=== PATIENT | female | born 1955 | race Caucasian/White ===

== ENCOUNTER 2024-04-12 14:25 | Outpatient (CLI) | payer OTHER, SELFPAY ==
--- NOTE | ~2024-04-12 | MM_ITS ---
EXAMINATION: MM screening nikhil BI w yara HISTORY: Screening TECHNIQUE: Craniocaudal and mediolateral oblique 3-D tomosynthesis images were obtained and synthetic 2-D images were generated. CAD analysis was submitted and interpreted. COMPARISON: Comparison to multiple prior studies sequentially, with oldest reviewed study dated 12/15. BREAST PARENCHYMAL COMPOSITION: Not Dense: The breasts are almost entirely fatty. FINDINGS: There is no evidence of suspicious mass, calcification, or architectural distortion to sugg est malignancy in either breast. There has been no suspicious interval change. IMPRESSION: 1. No mammographic evidence of malignancy. 2. Recommend routine screening mammography in one year. BI-RADS Category 1: Negative Reviewed, dictated and finalized at location A. L OPERATIONS MANAGER
== END 2024-04-12 14:26 | disposition home or self-care (01) ==
LOC: MICIMG 14:26
PROVIDERS: PCP Internal Medicine; Visit Provider Internal Medicine
DX: Z12.31 Encounter for screening mammogram for malignant neoplasm of breast (principal)
CPT/HCPCS: 77063; 77067

== ENCOUNTER 2024-08-29 20:56 | Emergency (ER) | payer OTHER, SELFPAY ==
--- NOTE | ~2024-08-29 | CT_ITS ---
Non-contrast Head CT History: Head injury Technique: Axial non-contrast imaging of the brain was performed. Dose reduction technique was used on this scan by utilizing automated exposure control and iterative reconstruction technique. The dose -length product (DLP) was 681.00 mGy-cm. Findings: There is no evidence of intracranial hemorrhage, mass lesion, or acute infarct. Brain par enchyma appears normal. The ventricles and subarachnoid spaces are normal in size. The calvarium ap pears normal. The visualized paranasal sinuses and mastoid air cells are clear. Impression: No significant abnormality seen. Reviewed, dictated and finalized at location . Impression: No significant abnormality seen.
--- NOTE | ~2024-08-29 | XR_ITS ---
HISTORY: fall, pain COMPARISON: None TECHNIQUE: 3 views of the right shoulder were performed FINDINGS: Acute comminuted fracture of the right humeral neck is identified. Limited visualization of the glenoid fossa. Impaction and overlap of the fracture fragments are present. 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 IMPRESSION: Acute comminuted fracture of the right humeral neck with impaction and overlap of the fracture fragme nts Reviewed, dictated and finalized at location A. IMPRESSION: Acute comminuted fracture of the right humeral neck with impaction and overlap of the fracture fragments
[2024-08-29 20:58] VITALS: BP 154/92; PULSE 80; RESP 18; TEMP 36.7; O2SAT 98
--- OUTSIDE RECORDS SUMMARY | 2024-08-29 20:59 | XMS_ITS | Clinical Summary ---
Author Organization [facility] Address [address] [address] Care Team Providers Care Building Manager Name Role Phone Unavailable Primary Care Provider Unavailabl e Source Comments [facility],non-owned Affiliates and Associated Physician Practices is amultiple site organization consisting of ambulatory clinics and hospital sitesin [place], [place], [place] and [place]. This disclosure is being madepursuant to the Care Everywhere program and may not contain all information available regarding this patient. Last updated 17.[facility] OneTouch Allergies No known active allergies Medications * Be aware that medications may not be up to date on this document. Alwaysverify current medications with the patient. albuterol HFA (Proventil; Ventolin; Proair) 108 (90 Base) MCG/ACT inhaler Inhale 2 (two) puffs by mouth every 6 hours as needed Active ALPRAZolam (Xanax) 0.5 MG tablet 05/07/2022 Active buPROPion XL 24hr (Wellbutrin-XL) 300 MG tablet Take 1 (one) tablet by mouth once daily 03/31/2022 Active doxepin (SINEquan) 10 MG capsule Take 1 (one) capsule by mouth at bedtime 11/12/2021 Active famotidine (Pepcid) 40 MG tablet Take 1 (one) tablet by mouth once daily 03/13/2022 Active hydroCHLOROthia zide (Hydrodiuril) 25 MG tablet Take 1 (one) tablet by mouth once daily 03/25/2022 Active potassium chloride ER (Klor-Con M) 10 MEQ tablet Take 1 (one) tablet by mouth 2 times daily 01/18/2022 Active Active Problems Problem Noted Date Diagnosed Date Screening for condition 05/27/2022 Overview (05/27/2022): 05/20/2022: PAP NILM, HPV neg --> 2025 Immunizations Immunization Administration Dates Next Due COVID PFIZER BIVALENT 12Y+ 30mcg/0.3ML 2 Covid Pfizer primary monoval ent 12+ yr 0.3mL Purple cap 03/21/2021 INFLUENZA VACCINE 12/15/2020,12/15/2018,12/29/19 18 INFLUENZA VACCINE, QUADR. (F LUZONE; FLULAVAL; FLUARIX; AFLURIA QUADRIVALENT; 6MO+), 0.5 ML (IIV4) 12/25/2021 PNEUMOCOCCAL PPSV23 05/10/2019 TDAP (7yrs+) 05/10/2019 Social History Tobacco Use Types Packs/Day Years Used Date Smoking Tobacco: Never Smokeless Tobacco: Never Alcohol Use Standard Drinks/Week Comments Never 0 (1 standard drink = 0.6 oz pur e alcohol) Comments No Sex and Gender Information Value Date Recorded Sex Assigned at Not on file Legal Sex Female 6:31 AM COLUMNIST Gender Identity Not on file Sexual Orientation Not on file Last Filed Vital Signs Vital Sign Reading Time Taken Comments Blood Pressure 130/72 05/20/2022 10:27 AM COLUMNIST Pulse - - Temperature - - Respiratory Rate - - Oxygen Saturation - - Inhaled Oxygen Concentration - - Weight 98.4 kg (217 lb) 05/20/2022 10:27 AM COLUMNIST Height 157.5 cm (5' 2) 05/20/2022 10:27 AM COLUMNIST Body Mass Index 39.69 05/20/2022 10:27 AM COLUMNIST Plan of Treatment Health Maintenance Due Date Last Done Comments BONE DENSITY TESTING 1955 COLOGUARD (AGES 45-75) - COLON CA SCREENING 1955 COLON MONITORING 1955 COLONOSCOPY - COLON CA SCREENING 1955 CT COLONOGRAPHY - COLON CA SCREENING 1955 Colorectal Cancer Screening 1955 FIT - COLON CA SCREENING 1955 FLEX SIG - COLON CA SCREENING 1955 LIPID TESTING 1955 MAMMOGRAM 1955 ZOSTER VACCINE (1 of 2) 2007 PNEUMOCOCCAL VACCINE 50+ (2 of 2 - PCV) 05/10/2020 05/10/2019 COVID-19 VACCINE (5 season) 2023 12/25/2021, 03/21/2021, 03/20/2020, Additional history exists DEPRESSION SCREENING 03/17/2024 INFLUENZA VACCINE (Season Ended) 2024 12/25/2021, 12/15/2020, 12/15/2018, Additional history exists SCREENING FOR DIABETES 09/11/2025 , 09/11/2022, 09/11/2022 DTAP/TDAP/TD VACCINES (2 - Td or Tdap) 05/10/2029 05/10/2019 Respiratory Syncytial Virus (RSV) Vaccine Pt: or over 60 yrs (1 - 1-dose 75+ series) 01/30/2032 HEPATITIS C SCREENING Completed 09/11/2022 HEPATITIS B VACCINE Aged Out No longe r eligible based on patient's age to complete this topic HIB VACCINE Aged Out No longer eligi ble based on patient's age to complete this topic HPV VACCINE Aged Out No longer eligi ble based on patient's age to complete this topic MENINGOCOCCAL (Group B) VACCINE SHARED DECISION-MAKING Aged Out No longer eligible based on patient's age to complete this topic MENINGOCOCCAL GROUPS A/C/Y/W VACCINE Aged Out No longer eligible based on patient's age to complete this topic Insurance [facility]
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
--- OUTSIDE RECORDS SUMMARY | 2024-08-29 22:11 | XMS_ITS | Encounter Summary ---
Author Organization [facility] Address [address] [place] [address] Care Team Providers Care Cad Application Support Specialist Name Role Phone Shimon Elliott MD Primary Care Provider Encounter Details Date Type Department Care Team (Late Contact Info) Description 09/11/2022 Berry Whitet Message Enc [facility] Medical [facility] [address] [place], [place] [phone] Curiously, [facility] Provider Air Quality Message Social History Tobacco Use Types Packs/Day Years Used Date Smoking Tobacco: Never Smokeless Tobacco: Never Alcohol Use Standard Drinks/Week Comments Never 0 (1 standard drink = 0.6 oz pur e alcohol) AUDIT-C Answer Date Recorded Frequency of Alcohol Consumption Never 04/30/2018 Average Number of Drinks Not on file 019 Frequency of Binge Drinking Not on file 04/17 PHQ-2 Answer Date Recorded PHQ-2 Score - If the patient scores above 3, please move on to questions 3-9 2 01/28/2022 Comments No Sex and Gender Information Value Date Recorded Sex Assigned at Female 04/30/2018 8:41 AM KEEPER HELPER Legal Sex Female 9:23 PM CDT Gender Identity Female 04/30/2018 8:41 AM KEEPER HELPER Sexual Orientation Straight 04/30/2018 8: 41 AM KEEPER HELPER documented as of this encounter Plan of Treatment Upcoming Encounters Date Type Department Care Team (Late Contact Info) Description 10/11/2024 8:20 AM CDT Office Visit [facility] Medical Group Family & Internal Medicine [address] [address] Shimon Elliott MD [address] [place] [address] documented as of this encounter Visit Diagnoses Not on filedocumented in this encounter Additional Health Concerns Assessment Noted Time PHQ-9 Depression Total Score: 5 12/26/19 22 9:01 AM CDT documented as of this encounter Care Teams Cad Application Support Specialist Relationship Specialty Start Date End Date Shimon Elliott MD [address] [place] [address] PCP - General INTERNAL MEDICINE 04/30/18 documented as of this encounter
--- OUTSIDE RECORDS SUMMARY | 2024-08-29 22:11 | XMS_ITS | Encounter Summary ---
Author Organization [facility] Address [address] [place] [address] Care Team Providers Care Scoring Machine Operator Name Role Phone Shimon Elliott MD Primary Care Provider Encounter Details Date Type Department Care Team (Late st Contact Info) Description 12/05/2020 Teleborderhart Message Enc [facility] Medical Group Family & Internal Medicine [address] [address] Shimon Elliott MD [address] [place] [phone] Other Social History Tobacco Use Types Packs/Day Years Used Date Smoking Tobacco: Never Smokeless Tobacco: Never Alcohol Use Standard Drinks/Week Comments No 0 (1 standard drink = 0.6 oz pur e alcohol) AUDIT-C Answer Date Recorded Frequency of Alcohol Consumption Never 04/30/2018 Average Number of Drinks Not on file 019 Frequency of Binge Drinking Not on file 04/17 PHQ-2 Answer Date Recorded PHQ-2 Score - If the patient scores above 3, please move on to questions 3-9 1 07/24/2020 Comments No Sex and Gender Information Value Date Recorded Sex Assigned at Female 04/30/2018 8:41 AM BARMAID Legal Sex Female 9:23 PM CDT Gender Identity Female 04/30/2018 8:41 AM BARMAID Sexual Orientation Straight 04/30/2018 8: 41 AM BARMAID documented as of this encounter Plan of Treatment Upcoming Encounters Date Type Department Care Team (Late st Contact Info) Description 10/11/2024 8:20 AM CDT Office Visit [facility] - [place] [facility] [address] [place] [address] Shimon Elliott MD [address] [place] [address] documented as of this encounter Visit Diagnoses Not on filedocumented in this encounter Additional Health Concerns Infection Onset Date Last Indicated Resolved Time COVID-19 Rule Out 01/28/2022 01/28/2022 01/28/2022 2:30 PM BARMAID COVID-19 Rule Out 01/28/2022 01/28/2022 2022 2:55 PM BARMAID Assessment Noted Time PHQ-9 Depression Total Score: 2 07/25/19 21 12:22 PM CDT documented as of this encounter Care Teams Scoring Machine Operator Relationship Specialty Start Date End Date Shimon Elliott MD [facility] [place] [address] PCP - General INTERNAL MEDICINE 04/30/18 documented as of this encounter
--- OUTSIDE RECORDS SUMMARY | 2024-08-29 22:11 | XMS_ITS | Encounter Summary ---
Author Organization [facility] Address [facility] [place] [address] Care Team Providers Care Retirement Sales Consultant Name Role Phone Shimon Elliott MD Primary Care Provider [phone] Encounter Details Date Type Department Care Team (Late st Contact Info) Description 01/14/2021 PayProphart Message Enc [facility] Medical Group Family & Internal Medicine [place] [id number] [place] [address] Shimon Elliott MD [facility] [place], [place] [phone] Follow Up/Update Social History Tobacco Use Types Packs/Day Years [...] Sex Assigned at Female 04/30/2018 8:41 AM BUTCHER MEAT Legal Sex Female 9:23 PM CDT Gender Identity Female 04/30/2018 8:41 AM BUTCHER MEAT Sexual Orientation Straight 04/30/2018 8: 41 AM BUTCHER MEAT COVID-19 Exposure Response Date Recorded In the last month, have you been in contact with someone who was confirmed or suspected to have Coronavirus / COVID-19? Unable to assess 01/17/2021 6:37 AM CDT documented as of this encounter Progress Notes * Shimon Elliott MD - 01/15/2021 1:41 PM CDT Not sure what she is asking, please clarify documented in this encounter Plan of Treatment Upcoming Encounters Date Type Department Care Team (Late st Contact Info) Description 10/11/2024 8:20 AM CDT Office Visit [facility] Medical Group Family & Internal Medicine - [place] [address] [place] [address] Shimon Elliott MD [address] [place] [address] documented as of this encounter Visit Diagnoses Not on filedocumented in this encounter Additional Health Concerns Infection Onset Date Last Indicated Resolved Time COVID-19 Rule Out 01/28/2022 01/28/2022 01/28/2022 2:30 PM BUTCHER MEAT COVID-19 Rule Out 01/28/2022 01/28/2022 2022 2:55 PM BUTCHER MEAT Assessment Noted Time PHQ-9 Depression Total Score: 2 07/25/19 21 12:22 PM CDT documented as of this encounter Care Teams Retirement Sales Consultant Relationship Specialty Start Date End Date Shimon Elliott MD [facility] [place] [address] PCP - General INTERNAL MEDICINE 04/30/18 documented as of this encounter
--- OUTSIDE RECORDS SUMMARY | 2024-08-29 22:11 | XMS_ITS | Encounter Summary ---
Author Organization [facility] Address [address] [place] [address] Care Team Providers Care Care Services Manager Name Role Phone Shimon Elliott MD Primary Care Provider [phone] Encounter Details Date Type Department Care Team (Late st Contact Info) Description 12/15/2019 MyChart Message Enc [facility] Family & Internal [address] [address] Shimon Elliott MD [address] [place] [address] [phone] RE: Question Social History Tobacco Use Types Packs/Day Years Used Date Smoking Tobacco: Never Smokeless Tobacco: Never Alcohol Use Standard Drinks/Week Comments No 0 (1 standard drink = 0.6 oz pur e alcohol) AUDIT-C Answer Date Recorded Frequency of Alcohol Consumption Never 04/30/2018 Average Number of Drinks Not on file 019 Frequency of Binge Drinking Not on file 04/17 PHQ-2 Answer Date Recorded PHQ-2 Score 0 05/10/2019 Comments No Sex and Gender Information Value Date Recorded Sex Assigned at Female 04/30/2018 8:41 AM SURGICAL CODER Legal Sex Female 9:23 PM CDT Gender Identity Female 04/30/2018 8:41 AM SURGICAL CODER Sexual Orientation Straight 04/30/2018 8: 41 AM SURGICAL CODER documented as of this encounter Plan of Treatment Upcoming Encounters Date Type Department Care Team (Late st Contact Info) Description 10/11/2024 8:20 AM CDT Office Visit [facility] Family & Internal [address] [address] Shimon Elliott MD [address] [place] [address] documented as of this encounter Visit Diagnoses Not on filedocumented in this encounter Additional Health Concerns Infection Onset Date Last Indicated Resolved Time COVID-19 Rule Out 01/28/2022 01/28/2022 01/28/2022 2:30 PM SURGICAL CODER COVID-19 Rule Out 01/28/2022 01/28/2022 2022 2:55 PM SURGICAL CODER documented as of this encounter Care Teams Care Services Manager Relationship Specialty Start Date End Date Shimon Elliott MD [address] [place] [address] PCP - General INTERNAL MEDICINE 04/30/18 documented as of this encounter
--- OUTSIDE RECORDS SUMMARY | 2024-08-29 22:11 | XMS_ITS | Clinical Summary ---
Author Organization [facility] Address [address] [place] [address] Care Team Providers Care Refuse Collector Supervisor Name Role Phone Unavailable Primary Care Provider Unavailabl e Source Comments [facility],non-owned Affiliates and Associated Physician Practices is amultiple site organization consisting of ambulatory clinics and hospital sitesin [place], [place], [place] and [place]. This disclosure is being madepursuant to the Care Everywhere program and may not contain all information available regarding this patient. Last updated 17.[facility] [employer] Allergies No known active allergies Medications * [...] on file Legal Sex Female 6:31 AM DIVISION SERVICE MANAGER Gender Identity Not on file Sexual Orientation Not on file Last Filed Vital Signs Vital Sign Reading Time Taken Comments Blood Pressure 130/72 05/20/2022 10:27 AM DIVISION SERVICE MANAGER Pulse - - Temperature - - Respiratory Rate - - Oxygen Saturation - - Inhaled Oxygen Concentration - - Weight 98.4 kg (217 lb) 05/20/2022 10:27 AM DIVISION SERVICE MANAGER Height 157.5 cm (5' 2) 05/20/2022 10:27 AM DIVISION SERVICE MANAGER Body Mass Index 39.69 05/20/2022 10:27 AM DIVISION SERVICE MANAGER Plan of Treatment Health Maintenance Due Date [...] patient's age to complete this topic Insurance [facility]
--- OUTSIDE RECORDS SUMMARY | 2024-08-29 22:11 | XMS_ITS | Encounter Summary ---
Author Organization [facility] Address [address] [place] [address] Care Team Providers Care Apron Cleaner Name Role Phone Shimon Elliott MD Primary Care Provider [phone] Encounter Details Date Type Department Care Team (Late st Contact Info) Description 12/27/2021 Raffstarhart Message Enc [facility] Medical Group Family & Internal Medicine [facility] [address] [place] [address] Shimon Elliott MD [facility]1 [place], [place] [id number] Health screening Social History Tobacco Use Types Packs/Day Years [...] 3, please move on to questions 3-9 0 12/25/2021 Comments No Sex and Gender Information Value Date Recorded Sex Assigned at Female 04/30/2018 8:41 AM CROWD CONTROLLER Legal Sex Female 9:23 PM CDT Gender Identity Female 04/30/2018 8:41 AM CROWD CONTROLLER Sexual Orientation Straight 04/30/2018 8: 41 AM CROWD CONTROLLER COVID-19 Exposure Response Date Recorded In the last 10 days, have yo u been in contact with someone who was confirmed or suspected to have Coronavirus/COVID-19? No / Unsure 12/25/2021 8:26 AM CDT documented as of this encounter Progress Notes * Shaneka Morris MA - 12/27/2021 9:32 AM CDT Form printed for signature * Shaneka Morris MA - 12/27/2021 9:32 AM CDTFrom: Ebonie Jaramillo To: Dr. Shimon Elliott Sent: 12/27/2021 9:17 AM CDT Subject: Health screening I have a form from work for health screening that needs completed. It can be emailed back to me at work Jaron [email or web address] [email or web address]. I appreciate it. Ebonie documented in this encounter Plan of Treatment Upcoming Encounters Date Type Department Care Team (Late st Contact Info) Description 10/11/2024 8:20 AM CDT Office Visit [facility] Family & Internal Medicine [place] [address] [place] [address] Shimon Elliott MD [address] [place] [address] documented as of this encounter Visit Diagnoses Not on filedocumented in this encounter Additional Health Concerns Infection Onset Date Last Indicated Resolved Time COVID-19 Rule Out 01/28/2022 01/28/2022 01/28/2022 2:30 PM CROWD CONTROLLER COVID-19 Rule Out 01/28/2022 01/28/2022 2022 2:55 PM CROWD CONTROLLER Assessment Noted Time PHQ-9 Depression Total Score: 5 12/26/19 22 9:01 AM CDT documented as of this encounter Care Teams Apron Cleaner Relationship Specialty Start Date End Date Shimon Elliott MD [facility] [place] [address] PCP - General INTERNAL MEDICINE 04/30/18 documented as of this encounter
--- OUTSIDE RECORDS SUMMARY | 2024-08-29 22:11 | XMS_ITS | Encounter Summary ---
Author Organization [facility] Address [address] [place] [address] Care Team Providers Care Strength And Conditioning Coach Name Role Phone Shimon Elliott MD Primary Care Provider [phone] Encounter Details Date Type Department Care Team (Late Contact Info) Description 05/09/2018 Cloudanthart Message Enc [facility] Family & Internal [facility] [address] [place] [address] Shimon Elliott MD [address] [place], [place] [phone] Other Social History Tobacco Use Types Packs/Day Years Used Date Smoking Tobacco: Never Smokeless Tobacco: Never Alcohol Use Standard Drinks/Week Comments No 0 (1 standard drink = 0.6 oz pur e alcohol) AUDIT-C Answer Date Recorded Frequency of Alcohol Consumption Never 04/30/2018 Average Number of Drinks Not on file 019 Frequency of Binge Drinking Not on file 04/17 Comments No Sex and Gender Information Value Date Recorded Sex Assigned at Female 04/30/2018 8:41 AM MEDICAL LAB TECH INSTRUCTOR Legal Sex Female 9:23 PM CDT Gender Identity Female 04/30/2018 8:41 AM MEDICAL LAB TECH INSTRUCTOR Sexual Orientation Straight 04/30/2018 8: 41 AM MEDICAL LAB TECH INSTRUCTOR documented as of this encounter Plan of Treatment Upcoming Encounters Date Type Department Care Team (Late Contact Info) Description 10/11/2024 8:20 AM CDT Office Visit [facility] Family & Internal Medicine [facility] [address] [place] [address] Shimon Elliott MD [address] [place] [address] documented as of this encounter Visit Diagnoses Not on filedocumented in this encounter Additional Health Concerns Infection Onset Date Last Indicated Resolved Time COVID-19 Rule Out 01/28/2022 01/28/2022 01/28/2022 2:30 PM MEDICAL LAB TECH INSTRUCTOR COVID-19 Rule Out 01/28/2022 01/28/2022 2022 2:55 PM MEDICAL LAB TECH INSTRUCTOR documented as of this encounter Care Teams Strength And Conditioning Coach Relationship Specialty Start Date End Date Shimon Elliott MD [address] [place] [address] PCP - General INTERNAL MEDICINE 04/30/18 documented as of this encounter
--- OUTSIDE RECORDS SUMMARY | 2024-08-29 22:11 | XMS_ITS | Encounter Summary ---
Author Organization [facility] Address [address] [place] [address] Care Team Providers Care Sensor Specialist Name Role Phone Shimon Elliott MD Primary Care Provider [phone] Encounter Details Date Type Department Care Team (Late st Contact Info) Description 12/27/2021 Workpophart Message Enc [facility] Medical Group Family & Internal Medicine [facility] [address] [place] [address] Shimon Elliott MD [facility]1 [place], [place] [phone] Health screening Social History Tobacco Use Types [...] Sex Assigned at Female 04/30/2018 8:41 AM VULCAN CREWMEMBER Legal Sex Female 9:23 PM CDT Gender Identity Female 04/30/2018 8:41 AM VULCAN CREWMEMBER Sexual Orientation Straight 04/30/2018 8: 41 AM VULCAN CREWMEMBER COVID-19 Exposure Response Date Recorded In the last 10 days, have yo u been in contact with someone who was confirmed or suspected to have Coronavirus/COVID-19? No / Unsure 12/25/2021 8:26 AM CDT documented as of this encounter Plan of Treatment Upcoming Encounters Date Type Department Care Team (Late st Contact Info) Description 10/11/2024 8:20 AM CDT Office Visit [facility] Medical Group Family & Internal Medicine [facility] [address] [place] [address] Shimon Elliott MD [address] [place] [address] documented as of this encounter Visit Diagnoses Not on filedocumented in this encounter Additional Health Concerns Infection Onset Date Last Indicated Resolved Time COVID-19 Rule Out 01/28/2022 01/28/2022 01/28/2022 2:30 PM VULCAN CREWMEMBER COVID-19 Rule Out 01/28/2022 01/28/2022 2022 2:55 PM VULCAN CREWMEMBER Assessment Noted Time PHQ-9 Depression Total Score: 5 12/26/19 22 9:01 AM CDT documented as of this encounter Care Teams Sensor Specialist Relationship Specialty Start Date End Date Shimon Elliott MD [address] [place] [address] PCP - General INTERNAL MEDICINE 04/30/18 documented as of this encounter
--- OUTSIDE RECORDS SUMMARY | 2024-08-29 22:11 | XMS_ITS | Encounter Summary ---
Author Organization [facility] Address [facility] [place] [address] Care Team Providers Care Conference Center Coordinator Name Role Phone Shimon Elliott MD Primary Care Provider [phone] Encounter Details Date Type Department Care Team (Late st Contact Info) Description 09/30/2018 CFO.comt Message Enc [facility] Medical Group Family & Internal Medicine [facility] [address] [place] [address] Shimon Elliott MD [address] [place], [place] [phone] RE: Other Social History Tobacco Use Types Packs/Day [...] 04/17 PHQ-2 Answer Date Recorded PHQ-2 Score 2 06/15/2018 Comments No Sex and Gender Information Value Date Recorded Sex Assigned at Female 04/30/2018 8:41 AM INDUSTRIAL SERVICE TECHNICIAN Legal Sex Female 9:23 PM CDT Gender Identity Female 04/30/2018 8:41 AM INDUSTRIAL SERVICE TECHNICIAN Sexual Orientation Straight 04/30/2018 8: 41 AM INDUSTRIAL SERVICE TECHNICIAN documented as of this encounter Progress Notes * Shimon Elliott MD - 10/08/2018 10:33 PM CDT CBC, CMP, Lipids, TSH with reflex, UA documented in this encounter Plan of Treatment Upcoming Encounters Date Type Department Care Team (Late st Contact Info) Description 10/11/2024 8:20 AM CDT Office Visit [facility] Group Family & Internal Medicine - [place] [address] [place] [address] Shimon Elliott MD [address] [place] [address] documented as of this encounter Visit Diagnoses Not on filedocumented in this encounter Additional Health Concerns Infection Onset Date Last Indicated Resolved Time COVID-19 Rule Out 01/28/2022 01/28/2022 01/28/2022 2:30 PM INDUSTRIAL SERVICE TECHNICIAN COVID-19 Rule Out 01/28/2022 01/28/2022 2022 2:55 PM INDUSTRIAL SERVICE TECHNICIAN documented as of this encounter Care Teams Conference Center Coordinator Relationship Specialty Start Date End Date Shimon Elliott MD [address] [place] [address] PCP - General INTERNAL MEDICINE 04/30/18 documented as of this encounter
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
--- OUTSIDE RECORDS SUMMARY | 2024-08-29 22:11 | XMS_ITS | Encounter Summary ---
Author Organization [facility] Address [facility] [place] [address] Care Team Providers Care Scholastic Aptitude Test Grader Name Role Phone Shimon Elliott MD Primary Care Provider [phone] Encounter Details Date Type Department Care Team (Late st Contact Info) Description 06/01/2018 Aeropostt Message Enc [facility] Medical Group Family & Internal Medicine [facility] [address] [place] [address] Shimon Elliott MD [facility] [place], [place] [phone] Medication Questions Social History Tobacco Use Types Packs/Day Years [...] Sex Assigned at Female 04/30/2018 8:41 AM SOLAR SALES ESTIMATOR Legal Sex Female 9:23 PM CDT Gender Identity Female 04/30/2018 8:41 AM SOLAR SALES ESTIMATOR Sexual Orientation Straight 04/30/2018 8: 41 AM SOLAR SALES ESTIMATOR documented as of this encounter Progress Notes * Shimon Elliott MD - 06/01/2018 2:17 PM CDT She really needs to make an appointment to discuss this and discuss medications that are available. documented in this encounter Plan of Treatment Upcoming Encounters Date Type Department Care Team (Late st Contact Info) Description 10/11/2024 8:20 AM CDT Office Visit [facility] Medical Group Family & Internal Medicine - [place] [address] [place] [address] Shimon Elliott MD [address] [place] [address] documented as of this encounter Visit Diagnoses Not on filedocumented in this encounter Additional Health Concerns Infection Onset Date Last Indicated Resolved Time COVID-19 Rule Out 01/28/2022 01/28/2022 01/28/2022 2:30 PM SOLAR SALES ESTIMATOR COVID-19 Rule Out 01/28/2022 01/28/2022 2022 2:55 PM SOLAR SALES ESTIMATOR documented as of this encounter Care Teams Scholastic Aptitude Test Grader Relationship Specialty Start Date End Date Shimon Elliott MD [address] [place] [address] PCP - General INTERNAL MEDICINE 04/30/18 documented as of this encounter
--- OUTSIDE RECORDS SUMMARY | 2024-08-29 22:11 | XMS_ITS | Encounter Summary ---
Author Organization [facility] Address [address] [place] [address] Care Team Providers Care Break And Load Operator Name Role Phone Shimon Elliott MD Primary Care Provider [phone] Reason for Referral * Consultation/Treatment (Routine) - Closed Specialty Diagnoses / Procedures Referred By Roque t Referred To Contact NEUROLOGY Diagnoses Memory loss Shimon Elliott MD [address] [place] [address] Phone: tel: fax: Sukhdeep Santana MD [address] [address] Phone: tel: fax: Referral ID Status Reason Start Date Expiration Date V isits Requested Visits Authorized [id number] Closed Specialty Services 04/05/2020 05/06/2021 100 100 R KILN Encounter Details Date Type Department Care Team (Late st Contact Info) Description 04/04/2020 MyChart Message Enc [facility] Family & Internal Medicine [facility] [address] [place] [address] Shimon Elliott MD [address] [place] [address] RE: Question Social History Tobacco Use Types [...] Sex Assigned at Female 04/30/2018 8:41 AM FIRER KILN Legal Sex Female 9:23 PM CDT Gender Identity Female 04/30/2018 8:41 AM FIRER KILN Sexual Orientation Straight 04/30/2018 8: 41 AM FIRER KILN documented as of this encounter Progress Notes * Shimon Elliott MD - 04/04/2020 5:14 PM CST I would recommend a referral to neurology for evaluation. R KILN documented in this encounter Plan of Treatment Upcoming Encounters Date Type Department Care Team (Late st Contact Info) Description 10/11/2024 8:20 AM CDT Office Visit [facility] Family & Internal Medicine [place] [place] [address] [place] [address] [place] [address] Scheduled Referrals Name Type Priority Associated Diagnoses Orde r Schedule Ambulatory referral to Neurology (OTHER) Referral Routine Memory loss Ordered: 04/05/2020 documented as of this encounter Visit Diagnoses Diagnosis Memory loss- Primary documented in this encounter Additional Health Concerns Infection Onset Date Last Indicated Resolved Time COVID-19 Rule Out 01/28/2022 01/28/2022 01/28/2022 2:30 PM FIRER KILN COVID-19 Rule Out 01/28/2022 01/28/2022 2022 2:55 PM FIRER KILN documented as of this encounter Care Teams Break And Load Operator Relationship Specialty Start Date End Date Shimon Elliott MD [address] [place] [address] PCP - General INTERNAL MEDICINE 04/30/18 documented as of this encounter
--- OUTSIDE RECORDS SUMMARY | 2024-08-29 22:11 | XMS_ITS | Encounter Summary ---
Author Organization [facility] Address [facility] [place] [address] Care Team Providers Care Preassembler Printed Circuit Board Name Role Phone Shimon Elliott MD Primary Care Provider [phone] Encounter Details Date Type Department Care Team (Late st Contact Info) Description 05/06/2022 [employer] Message Enc [facility] Family & Internal Medicine [facility] [address] [place] [address] Shimon Elliott MD [address] [place], [place] [id number] Bladder Social History Tobacco Use Types Packs/Day Years [...] Sex Assigned at Female 04/30/2018 8:41 AM MANAGER ROUTE Legal Sex Female 9:23 PM CDT Gender Identity Female 04/30/2018 8:41 AM MANAGER ROUTE Sexual Orientation Straight 04/30/2018 8: 41 AM MANAGER ROUTE documented as of this encounter Progress Notes * Shimon Elliott MD - 05/07/2022 4:56 PM CST Since culture is negative, there is no infection. Increase fluids and call if not improving. GER ROUTE documented in this encounter Plan of Treatment Upcoming Encounters Date Type Department Care Team (Late st Contact Info) Description 10/11/2024 8:20 AM CDT Office Visit [facility] Family & Internal Medicine - [id number] [place] [address] Shimon Elliott MD [address] [place] [address] documented as of this encounter Visit Diagnoses Not on filedocumented in this encounter Additional Health Concerns Assessment Noted Time PHQ-9 Depression Total Score: 5 12/26/19 22 9:01 AM CDT documented as of this encounter Care Teams Preassembler Printed Circuit Board Relationship Specialty Start Date End Date Shimon Elliott MD [address] [place] [address] PCP - General INTERNAL MEDICINE 04/30/18 documented as of this encounter
[2024-08-29] MEDS: oxyCODONE/ACETAMINOPHEN (*CRX) 5-325 MG TABLET 1 TABLET PO (22:21)
[2024-08-29] MEDS: ONDANSETRON HCL ODT 4 MG TABLET PO (22:21)
--- NOTE | 2024-08-29 23:34 | ED_ITS ---
HPI - Extremity Injury (Upper) General Chief Complaint: Extremity Injury, Upper Stated Complaint: fall right arm/ shoulder injury Time Seen by Provider: 08/29/24 21:23 History of Present Illness HPI narrative: Yesterday patient had lost her balance and fell and hit her head, today she fell again after missing a step, and landed on her right shoulder, is reporting quite a bit of pain. Denies any injuries anywhere else. Denies any chest pain, shortness of breath, loss of consciousness Related Data Allergies Allergy/AdvReac Type Severity Reaction Status Date / Time No Known Allergies Allergy Verified 08/29/24 20:56 Review of Systems Review of Systems: All systems reviewed & are unremarkable except as noted in HPI and below Exam Narrative: EXAMINATION OF ORGAN SYSTEMS/BODY AREAS: Constitutional: Vital signs per nursing GENERAL: Appears uncomfortable HEAD: Normal with no signs of head trauma. EYES: EOMI, conjunctiva normal ENT: Hearing grossly intact LUNGS: Nonlabored breathing. HEART: [Regular rate and rhythm], radial pulse intact ABD: [Soft], [nontender to palpation] EXT: Tenderness to R upper arm SKIN: Bruise right forehead NEURO: [Alert and oriented x 3. No gross focal sensory or strength deficits.] PSYCH: Normal affect Course Vital Signs Vital signs: Vital Signs Temperature 98.1 F 08/29/24 20:58 Pulse Rate 80 08/29/24 20:58 Respiratory Rate 18 08/29/24 20:58 Blood Pressure 154/92 H 08/29/24 20:58 Pulse Oximetry 98 08/29/24 20:58 Oxygen Delivery Room Air 08/29/24 20:58 Temperature 97.6 F 08/29/24 23:36 Pulse Rate 90 08/29/24 23:36 Respiratory Rate 18 08/29/24 23:36 Blood Pressure 128/84 08/29/24 23:36 Pulse Oximetry 98 08/29/24 23:36 Oxygen Delivery Room Air 08/29/24 20:58 MDM - Extremity Injury (Upper) MDM Narrative Medical decision making narrative: Patient presents after mechanical fall injuring her right shoulder with severe pain, she is NVI, does have deformity with tenderness to her right shoulder, do es also have a bruise to her right forehead. CT head also obtained. Right shoulder x-ray unfortunately does show a right humeral neck fracture, she is placed in a sling. CT head thankfully without any acute abnormality. She is given pain medication and nausea medicine and on re-evaluation she does feel better, discussed the findings with the patient, and given follow-up to Orthopedics. Patient agreeable to plan with return precautions. Discharge Plan Discharge Clinical Impression: Fracture of humerus Patient Disposition: Home Condition: Stable Instructions: Arm Fracture in Adults (ED), How to Use a Sling (ED) Additional Instructions: Please follow-up with orthopedic surgeon. Keep your arm in the sling. You can always return to the emergency room for any further issues. Patient Language: Tanzanian Prescriptions: New oxycodone 5 mg capsule 5 mg PO Q6H PRN (Reason: pain) Qty: 14 0RF oxycodone 5 mg capsule 5 mg PO Q6H PRN (Reason: pain) Qty: 14 0RF oxycodone 5 mg capsule 5 mg PO Q6H PRN (Reason: pain) Qty: 14 0RF Follow-up/Referrals: Mauro Ojeda MD [Physician] - 2 Days Lexi,Shimon Varela MD [Primary Care Provider] - Stand Alone Forms: Work/School Release IP
[2024-08-29 23:36] VITALS: BP 128/84; PULSE 90; RESP 18; TEMP 36.4; O2SAT 98
== END 2024-08-29 23:39 | disposition home or self-care (01) ==
PROVIDERS: Emergency Provider Emergency Medicine; PCP Internal Medicine
DX: S42.211A Unspecified displaced fracture of surgical neck of right humerus, initial encounter for closed fracture (principal); W10.9XXA Fall (on) (from) unspecified stairs and steps, initial encounter
CPT/HCPCS: 70450; 73030; 99284; A4565; A9270